=== PATIENT | male | born 1985 | race Caucasian/White ===

== ENCOUNTER 2016-07-30 05:38 | Emergency (ER) | payer OTHER ==
[~2016-07-30] VITALS: Ht 170.2 cm; Wt 108.0 kg
[2016-07-30 05:40] VITALS: BP 163/113; PULSE 75; RESP 16; TEMP 98.2; O2SAT 96
[2016-07-30] MEDS ORDERED: SODIUM CHLOR 0.9% 1000 ML INJ 1,000 ML IV SCH (05:56)
--- NOTE | 2016-07-30 05:59 | PD ---
HPI Chief Complaint: Flank/Kidney Pain Time Seen by Provider: 05:52 Travel History International Travel<30 days: No Contact w/Intl Traveler<30days: No Traveled to known affect area: No History of Present Illness HPI This is a 31-year-old male who presents the emergency department with left- sided abdominal pain that started last evening abruptly at 11 PM, constant, radiating all the way to the back, severe, associated with multiple episodes of vomiting and 3 loose stools. He denies any fevers or chills. He denies any blood in his urine or dysuria. He has had kidney stones in the past but he feels like this is different. He denies any history of abdominal surgeries and denies any alcohol use. PFSH Past Medical History Medical History: Denies Significant Hx Diminished Hearing: No Immunizations Current: Yes Past Surgical History Surgical History: No Previous Surgery Social History Alcohol Use: No Tobacco Use: No Substance Use: No Allergies-Medications (Allergen,Severity, Reaction): Coded Allergies: No Known Allergies (Unverified , 07/30/16) Reported Meds & Prescriptions Reported Meds & Active Scripts Active [place] (Hydrocodone-Acetaminophen) 10-325 Mg Tab 1 Tab PO Q6H PRN Flomax (Tamsulosin HCl) 0.4 Mg Cap 0.4 Mg PO HS Cipro (Ciprofloxacin HCl) 500 Mg Tab 500 Mg PO BID 7 Days Review of Systems Except as stated in HPI: all other systems reviewed are Neg Physical Exam Narrative GENERAL:Well appearing, no acute distress SKIN: Warm and dry. HEAD: Atraumatic. Normocephalic. EYES: Pupils equal and round. No injection or drainage. ENT: Moist mucous membranes NECK: Trachea midline. CARDIOVASCULAR: Regular rate and rhythm. No murmur appreciated. RESPIRATORY: Clear to auscultation. Breath sounds equal bilaterally. GASTROINTESTINAL: Abdomen soft, tender to palpation in the left upper quadrant and epigastrium with no rebound or guarding. : Left CVA tenderness. MUSCULOSKELETAL: No obvious deformities. NEUROLOGICAL: Awake and alert. No obvious cranial nerve deficits. Moving all extremities. PSYCHIATRIC: Appropriate mood and affect; insight and judgment normal. Data Data Last Documented VS Orders Complete Blood Count With Diff (07/30/16 05:56) Comprehensive Metabolic Panel (07/30/16 05:56) Lipase (07/30/16 05:56) Urinalysis - C+S If Indicated (07/30/16 05:56) Iv Access Insert/Monitor (07/30/16 05:56) Ecg Monitoring (07/30/16 05:56) Oximetry (07/30/16 05:56) Morphine Inj (Morphine Inj) (07/30/16 06:00) Ondansetron Inj (Zofran Inj) (07/30/16 06:00) Sodium Chlor 0.9% 1000 Ml Inj (Ns 1000 M (07/30/16 05:56) Sodium Chloride 0.9% Flush (Ns Flush) (07/30/16 06:00) Ct Abd/Pel W Iv Contrast(Rout) (07/30/16 ) Morphine Inj (Morphine Inj) (07/30/16 07:30) Sodium Chlor 0.9% 1000 Ml Inj (Ns 1000 M (07/30/16 07:30) Iohexol 350 Inj (Omnipaque 350 Inj) (07/30/16 08:02) MDM Medical Decision Making Medical Screen Exam Complete: Yes Emergency Medical Condition: Yes Differential Diagnosis Nephrolithiasis, colitis, diverticulitis, pancreatitis Narrative Course This is a 31-year-old male who presents the emergency department with abdominal pain. Labs are obtained will be ordered. Case was signed out to Dr. Reeves who will disposition the patient based on CT results. Scripts Hydrocodone-Acetaminophen ([place])10-325 Mg Tab1 Tab PO Q6H PRN (PAIN) #15 TAB Ref 0 Prov:Yonatan Reeves MD 07/30/16 Tamsulosin (Flomax)0.4 Mg Cap0.4 Mg PO HS #30 CAP Ref 0 Prov:Yonatan Reeves MD 07/30/16 Ciprofloxacin (Cipro)500 Mg [id number] Mg PO BID 7 Days Ref 0 Prov:Yonatan Reeves MD 07/30/16 Katty Dorsey MD Jul 30, 2016 05:59
[2016-07-30] MEDS ORDERED: MORPHINE SULFATE 4 MG/ML INJ IV PUSH ONE (06:00)
[2016-07-30] MEDS ORDERED: ONDANSETRON HCL 4 MG/2 ML VIAL IVP ONE (06:00)
[2016-07-30] MEDS ORDERED: SODIUM CHLORIDE 0.9% FLUSH 5 ML FLUSH IVF PRN (06:00)
[2016-07-30 06:13] LABS: AUTOMATED NEUTROPHIL # 13.3 TH/MM3 (1.8-7.7); BASOPHIL % 0.2 % (0.0-2.0); HEMATOCRIT 41.5 % (39.0-51.0); HEMO FLAGS DIFF FINAL; LYMPH % 3.6 % (9.0-44.0); LYMPHOCYTE # 0.5 TH/MM3 (1.0-4.8); MEAN CELL VOLUME 85.2 FL (80.0-100.0); MEAN CORPUSCULAR HEMOGLOBIN 29.3 PG (27.0-34.0); MEAN CORPUSCULAR HGB CONC 34.4 % (32.0-36.0); MONO % 3.7 % (0.0-8.0); NEUT % 92.5 % (16.0-70.0); PLATELET COUNT 337 TH/MM3 (150-450); RED BLOOD COUNT 4.87 MIL/MM3 (4.50-5.90); RED CELL DISTRIBUTION WIDTH 14.3 % (11.6-17.2); WHITE BLOOD COUNT 14.4 TH/MM3 (4.0-11.0)
[2016-07-30 06:18] LABS: BLOOD, URINE NEG (NEG); COMMENT (UR) CULT NOT INDICATED; CULTURE IF INDICATED CULT NOT INDICATED; GLUCOSE,URINE 150 mg/dL (NEG); KETONE, URINE NEG (NEG); MUCUS URINE FEW /lpf (OCC); NITRITE,URINE NEG (NEG); URINE COLOR LIGHT-YELLOW (YELLW/STRAW)
[2016-07-30 07:11] LABS: ANION GAP 11 MEQ/L (5-15); AST (GOT) 19 U/L (15-37); BLOOD UREA NITROGEN 13 MG/DL (7-18); CHLORIDE 106 MEQ/L (98-107); GLOMERULAR FILTRATION RATE 55 ML/MIN (>89); POTASSIUM 3.8 MEQ/L (3.5-5.1); SODIUM (NA) 141 MEQ/L (136-145)
[2016-07-30 07:14] LABS: ALKALINE PHOSPHATASE 55 U/L (45-117); ALT (GPT) 47 U/L (12-78); TOTAL BILIRUBIN ADULT 0.4 MG/DL (0.2-1.0)
--- NOTE | 2016-07-30 07:29 | PD ---
Data Data Last Documented VS Vital Signs Date Time Temp Pulse Resp B/P Pulse Ox O2 Delivery O2 Flow Rate FiO2 07/30/16 09:38 96 07/30/16 08:13 89 18 167/87 Room Air 07/30/16 05:40 98.2 Orders Complete Blood Count With Diff (07/30/16 05:56) Comprehensive Metabolic Panel (07/30/16 05:56) Lipase (07/30/16 05:56) Urinalysis - C+S If Indicated (07/30/16 05:56) Iv Access Insert/Monitor (07/30/16 05:56) Ecg Monitoring (07/30/16 05:56) Oximetry (07/30/16 05:56) Morphine Inj (Morphine Inj) (07/30/16 06:00) Ondansetron Inj (Zofran Inj) (07/30/16 06:00) Sodium Chlor 0.9% 1000 Ml Inj (Ns 1000 M (07/30/16 05:56) Sodium Chloride 0.9% Flush (Ns Flush) (07/30/16 06:00) Ct Abd/Pel W Iv Contrast(Rout) (07/30/16 ) Morphine Inj (Morphine Inj) (07/30/16 07:30) Sodium Chlor 0.9% 1000 Ml Inj (Ns 1000 M (07/30/16 07:30) Iohexol 350 Inj (Omnipaque 350 Inj) (07/30/16 08:02) Labs Laboratory Tests Test 07/30/16 07/30/16 06:00 06:05 White Blood Count 14.4 TH/MM3 Red Blood Count 4.87 MIL/MM3 Hemoglobin 14.3 GM/DL Hematocrit 41.5 % Mean Corpuscular Volume 85.2 FL Mean Corpuscular Hemoglobin 29.3 PG Mean Corpuscular Hemoglobin 34.4 % Concent Red Cell Distribution Width 14.3 % Platelet Count 337 TH/MM3 Mean Platelet Volume 8.4 FL Neutrophils (%) (Auto) 92.5 % Lymphocytes (%) (Auto) 3.6 % Monocytes (%) (Auto) 3.7 % Eosinophils (%) (Auto) 0.0 % Basophils (%) (Auto) 0.2 % Neutrophils # (Auto) 13.3 TH/MM3 Lymphocytes # (Auto) 0.5 TH/MM3 Monocytes # (Auto) 0.5 TH/MM3 Eosinophils # (Auto) 0.0 TH/MM3 Basophils # (Auto) 0.0 TH/MM3 CBC Comment DIFF FINAL Differential Comment Sodium Level 141 MEQ/L Potassium Level 3.8 MEQ/L Chloride Level 106 MEQ/L Carbon Dioxide Level 24.0 MEQ/L Anion Gap 11 MEQ/L Blood Urea Nitrogen 13 MG/DL Creatinine 1.51 MG/DL Estimat Glomerular Filtration 55 ML/MIN Rate Random Glucose 187 MG/DL Calcium Level 8.8 MG/DL Total Bilirubin 0.4 MG/DL Aspartate Amino Transf 19 U/L (AST/SGOT) Alanine Aminotransferase 47 U/L (ALT/SGPT) Alkaline Phosphatase 55 U/L Total Protein 7.8 GM/DL Albumin 4.3 GM/DL Lipase 90 U/L Urine Color LIGHT-YELLOW Urine Turbidity CLEAR Urine pH 8.0 Urine Specific [place] 1.019 Urine Protein TRACE mg/dL Urine Glucose (UA) 150 mg/dL Urine Ketones NEG mg/dL Urine Occult Blood NEG Urine Nitrite NEG Urine Bilirubin NEG Urine Urobilinogen LESS THAN 2.0 MG/DL Urine Leukocyte Esterase NEG Urine RBC 4 /hpf Urine WBC 1 /hpf Urine Amorphous Sediment RARE Urine Mucus FEW /lpf Microscopic Urinalysis Comment CULT NOT INDICATED MDM Supervised Visit with SHAHEED: No Narrative Course Patient care assumed from Dr. Gilliland at 0700. This is a 31-year-old male with a history of kidney stones presents today with left flank pain and mild dysuria. Patient states feels somewhat different than his last kidney stone. He has not seen a urologist ever for kidney stones but has been able to pass them at home. He states he has been admitted once or twice for kidney stones he 's never had to have it surgically removed. His UA shows trace microscopic hematuria without evidence for urinary tract infection. Electrolytes within normal limits, creatinine is 1.5 without previous for comparison. Patient was CAT scan with IV contrast which reveals that there is some perinephric fat stranding on the left side. On my examination patient has no CVA tenderness. Patient was discussed with Dr. Jayson Veronica who suggested pyelonephritis could be considered in the right clinic contacts. I highly doubt given the patient has no evidence of urinary tract infection as well as no CVA tenderness. He does have a very small kidney stone at the UVJ probably 1 mm. All this was discussed with the patient and he was still having significant pain on my first evaluation just after shift change. He was given 6 g of morphine IV. Still having some pain afterwards. I discussed with him his results including a creatinine 1.5, the perinephric fat stranding and its applications as well as is 1 mm kidney stone. I discussed that he needs to consider admission for acute kidney injury as well as his kidney stone and pain. He would like to discuss with his prior to admission. After they' ve discussed for some time the patient was able to urinate his pain was completely relieved after micturition. Patient would like to go home at this point. Discussed with him he needs to have repeat labs within a week with a primary care physician or urologist to determine if his kidney function is getting worse or better. Discussed will place him on Flomax and pain medicine. Although pyelonephritis is an outside possibility will place him on anabiotic' s given the fat stranding. Discussed with him return to ED criteria he was given a referral to Dr. More Diagnosis Primary Impression: Renal colic on left side Referrals: Tomas More MD Med/Other Pt SpecificInfo: Prescription(s) given Scripts Hydrocodone-Acetaminophen ([place])10-325 Mg Tab1 Tab PO Q6H PRN (PAIN) #15 TAB Ref 0 Prov:Yonatan Reeves MD 07/30/16 Tamsulosin (Flomax)0.4 Mg Cap0.4 Mg PO HS #30 CAP Ref 0 Prov:Yonatan Reeves MD 07/30/16 Ciprofloxacin (Cipro)500 Mg [id number] Mg PO BID 7 Days Ref 0 Prov:Yonatan Reeves MD 07/30/16 Disposition: 01 DISCHARGE HOME Condition: Stable Yonatan Reeves MD Jul 30, 2016 07:29
[2016-07-30] MEDS ORDERED: SODIUM CHLOR 0.9% 1000 ML INJ 1,000 ML IV ONE (07:30)
[2016-07-30] MEDS ORDERED: MORPHINE SULFATE 8 MG/ML INJ IV PUSH ONE (07:30)
[2016-07-30] MEDS ORDERED: IOHEXOL 350 MG/ML 10 ML VIAL (for RAD DIAG) IV ONE (08:02)
[2016-07-30 08:13] VITALS: BP 167/87; PULSE 89; RESP 18; O2SAT 94
--- NOTE | 2016-07-30 08:21 | RADRPT ---
EXAM DATE/TIME: 07/30/2016 07:57 [facility] COMPARISON: No previous studies available for comparison. INDICATIONS : Nausea, vomiting, and left sided abdominal pain since last night. IV CONTRAST: 85 cc Omnipaque 350 (iohexol) IV ORAL CONTRAST: No oral contrast ingested. RADIATION DOSE: 16.73 CTDIvol (mGy) MEDICAL HISTORY : None SURGICAL HISTORY : None. ENCOUNTER: Initial ACUITY: 1 day PAIN SCALE: 7/10 LOCATION: Left flank TECHNIQUE: Volumetric scanning of the abdomen and pelvis was performed. Using automated exposure control and ad justment of the mA and/or kV according to patient size, radiation dose was kept as low as reasonably achievable to obtain optimal diagnostic quality images. FINDINGS: Small granuloma is present in the right lung base. There is no pericardial effusion. There is moderate fatty replacement to the liver. The spleen and pancreas are unremarkable. The right adrenal and right kidney appear normal. There is perinephric s tranding about the left kidney with mild dilatation of the left ureter. There is a 1 mm stone at the left ureterovesical junction. This probably is due to the obstructing stone. Pyelonephritis could give a similar appearance. Phleboliths are present in the pelvis along with the tiny stone. CONCLUSION: 1. Tiny stone left ureterovesical junction with perinephric stranding all on the left. 2. Pyelonephritis cannot be entirely excluded. 3. Degenerative changes are seen at L5-S1. Driss Veronica MD FACR on July 30, 2016 at 8:12 Board Certified Radiologist. This report was verified electronically.
[2016-07-30] MEDS ORDERED: HYDR-3366 PO (09:20)
[2016-07-30] MEDS ORDERED: CIPR-9 PO (09:20)
[2016-07-30] MEDS ORDERED: TAMS5CAP PO (09:20)
== END 2016-07-30 09:49 | disposition home or self-care (01) ==
LOC: NEPC 05:38
DX: N23 Unspecified renal colic (principal); Z87.442 Personal history of urinary calculi
CPT/HCPCS: 74177; 80053; 81001; 83690; 85025; 96374; 96375; 96376; 99284; J2270; J2405; J7030; Q9967